=== PATIENT | male | born 1980 | race Caucasian/White ===

== ENCOUNTER 2025-03-18 08:03 | Emergency (ER) | payer MEDICAID, SELFPAY ==
[2025-03-18 08:03] VITALS: BMI 23.7
--- NOTE | 2025-03-18 08:13 | EDNOTE_ITS ---
<Statement entered by Deloris Milton MD - 04/02/25 06:32> I, Deloris Milton MD, have reviewed the history, exam, and assessment of the patient. I have evaluated the patient independently and agree with the plan of care documented by [ ]. All diagnostic studies were reviewed and discussed. I confirm the diagnosis as documented by the Resident. I was present during the Medical Decision Making for this patient. The patient's plan of care was created between myself and the Resident and consistent with our discussion of the patient's case. ED General RME/HPI General Chief complaint: General Adult/Misc Complain Stated complaint: PAIN R) BUTT, INFECTION OR BIT BY A SPIDER Time Seen by Provider: 03/18/25 08:14 Arrival date/time: 03/18/25 08:03 RME / HPI RME / HPI narrative: 44-year-old male with no pertinent past medical history comes into the ED with chief complaints of possible insect bite or infected pimple on the right buttocks. Patient states that he was recently released from [facility] on the seventh and before this he was on antibiotics due to another similar lesion close to the current lesion. Patient stated that yesterday he took an amoxicillin that he had at his house, but it did not help. He says that he has been having a pimple-like lesion on his right lower buttocks which has since grown and has not responded to 1 dose of amoxicillin that he took yesterday. Patient states that he had chills and fevers yesterday and was also having some nausea and diarrhea, otherwise denies having any chest pain, shortness of breath, vomiting, burning/urination or any other associated symptom. Past smoker quit around 1 month ago, past substance use, social drinking Related Data Previous Rx's ?Medication ?Instructions ?Recorded meloxicam 7.5 mg tablet 7.5 mg PO QDAY #7 tabs 02/08 cephalexin 500 mg capsule 500 mg PO QID 7 days #28 cap s 03/18/25 Allergies Allergy/AdvReac Type Severity Reaction Status Date / Time No Known Allergies Allergy Verified 03/18/25 08:06 Review of Systems Review of Systems Systems Reviewed: All systems reviewed, normal except as documented Past Medical History Past Medical History CARDIAC: Negative Congestive Heart Failure RESPIRATORY: Negative Chronic Obstructive Pulmonary Disease (COPD) GENITOURINARY: Negative Renal Disease ENDOCRINE: Negative Diabetes Mellitus Type 1 or Diabetes Mellitus Type 2 Social History SMOKING STATUS: Current every day smoker ED Exam Narrative Physical exam: Gen: A&O X 3, NAD HEENT: NCAT, EOMI, Pupils reactive ARIAN, not icteric. External ears normal. No rhinorrhea. Moist mucous membranes. Neck: Supple, full range of motion, no observable masses, No meningeal sign. Lungs: No Respiratory distress, clear bilateral. CV: RRR, no murmurs. Abdomen: Soft, nondistended, No rebound tenderness. MSK: No joint swelling, no redness, peripheral pulses presents, lumbar with no edema. Skin: No rashes, petechiae, lesions. Erythematous, swollen, and tender 4 cm nonfluctuating lesion on the lateral right lower buttocks with no purulent discharge. Another healing lesion medially located to this lesion without any tenderness or swelling. Neuro: No focal neurological deficits appreciated, sensory and motor intact. Psych: Cooperative, appropriate mood and effect. Course Quality Measures none Orders Category Date Time Status CBC Stat Lab 03/18/25 08:13 Ordered CMP [Comprehensive Metabolic Panel] Stat Lab 03/18/25 08:13 Ordered Lactate (Lactic Acid) Stat Lab 03/18/25 08:13 Ordered Vital Signs Vital signs: Vital Signs Temperature 99.2 F 03/18/25 08:21 Pulse Rate 80 03/18/25 08:21 Respiratory Rate 18 03/18/25 08:21 Blood Pressure 125/83 03/18/25 08:21 Pulse Oximetry (%) 96 03/18/25 08:21 Oxygen Delivery Method Room Air 03/18/25 08:21 Discharge Plan Plan Patient Disposition: HOME (Self Care) Prescriptions/Referrals Prescriptions/Med Rec: New cephalexin 500 mg capsule 500 mg PO QID 7 Days Qty: 28 0RF No Action meloxicam 7.5 mg tablet 7.5 mg PO QDAY Qty: 7 0RF Problem List Clinical Impression: Boil, buttock Patient/Caregiver Discharge Instructions Other Activity Instructions:: Follow-up primary care physician within 1 to 2 days You can use Tylenol every 6 hours for fever or pain. Apply a cold and warm compresses in between to help with pain and swelling. You have been's prescribed Keflex 4 times daily for 7 days. Come back to the ER if you develop any fevers, worsening pain, worsening swelling, or any other worsening symptoms. Education Materials: Understanding Carbuncles, Understanding Folliculitis, ED Folliculitis Print Language: Lao Stand Alone Forms: Kelley Award Info., Patient Portal Info Letter MDM Narrative MDM hospital course: Patient was seen evaluated upon arrival by myself. At this time patient does not have any fevers and given that his lesion is not close to and is and does not appear to be having any discharge we will discharge patient on outpatient antibiotics Keflex for 7 days. Patient agrees with plan. Case disclosed with Attending Dr. Karine Bradford PGY2 Disclaimer: Even though this this note was dictated by speech recognition and even though it was carefully revised there may still be minor errors in dawkins scription due to voice recognition software.
[2025-03-18 08:21] VITALS: BP 125/83; PULSE 80; RESP 18; TEMP 37.3; O2SAT 96
== END 2025-03-18 08:37 | disposition home or self-care (01) ==
LOC: SERX 08:39
PROVIDERS: Emergency Provider Emergency Medicine; PCP Family Medicine
DX: L02.32 Furuncle of buttock (principal); Z87.891 Personal history of nicotine dependence
CPT/HCPCS: 80053; 83605; 85025; 99282